=== PATIENT | male | born 1975 | race Caucasian/White ===

== ENCOUNTER 2023-04-08 05:50 | Emergency (ER) | payer BC ==
--- NOTE | 2023-04-08 06:20 | ED GI ---
General Chief Complaint: Rect Problems Stated Complaint: HEMORRHOIDS Source of Information: Patient Exam Limitations: No Limitations History of Present Illness Date Seen by Provider: Apr 08, 2023 Time Seen by Provider: 06:20 Initial Comments Patient is a 48-year-old male who presents to the emergency department today with a chief complaint of concern for hemorrhoids. Patient has been developing rectal pain over the last 2 weeks. He has been using suppositories, topical numbing cream and Preparation H without any relief of symptoms. He states he was up all night with the pain. Last oral intake was around 2 or 3 AM, he had a sip of water. Patient relates that he had a "fistulectomy" at [facility] in January. He has been on stool softener since. He states the pain is unbearable, unable to find a comfortable position. No nausea vomiting. He is not a diabetic. Denies black or bloody stool. Has not been constipated. No problems with urination. Timing/Duration: Other (2 weeks) Severity/Quality: Severe, Sharp Location: Other (rectal) Radiation: No Radiation Associated Symptoms: Denies Symptoms Allergies and Home Medications Allergies Coded Allergies: No Known Drug Allergies (Unverified , 04/08/23) Patient Home Medication List Home Medication List Reviewed: Yes Amoxicillin/Potassium Clav (Amox Tr-K Clv 875-125 mg Tab) 875 Mg-125 Mg Tablet, 1 EACH PO BID Prescribed by: SRIKANTH MCLEAN on 04/08/23 08 Hydrocodone/Acetaminophen (Hydrocodone-Acetamin 7.5-325) 7.5 Mg-325 Mg Tablet, 1 EACH PO Q6H PRN for PAIN-BREAKTHROUGH Prescribed by: SRIKANTH MCLEAN on 04/08/23 0806 Review of Systems Review of Systems Constitutional: see HPI Respiratory: No Symptoms Reported Cardiovascular: No Symptoms Reported Gastrointestinal: Other (rectal pain) Physical Exam Vital Signs Vital Signs - First Documented 04/08/23 06:05 Temp 36.6 Pulse 88 Resp 16 B/P (MAP) 138/96 (110) Pulse Ox 99 O2 Delivery Room Air Capillary Refill : Height/Weight/BMI Height: '" Weight: lbs. oz. kg; BMI Method: General Appearance: WD/WN, mild distress Respiratory: no respiratory distress, no accessory muscle use Rectal: other (noted rectal fullness/fluctuance adjacent to the anus at the 7 o'clock position (about 3-4 cm.) on GAEL - very painful, induration extends to the perineum, fluctuance in the rectal vault to the 6 o'clock position) Genital/Rectal: normal rectal tone Extremities: normal range of motion, normal inspection Back: normal inspection Neurologic/Psychiatric: alert, normal mood/affect, oriented x 3 Skin: normal color, warm/dry Procedures/Interventions I&D : Site: left perianal Blade Size: 11 Progress Area cleansed with chlohexadine. 11blade used to make a radial incision about 1cm to the left of the anus. went a little over 1cm deep with COPIOUS amounts of pus returned. Area was continuously irrigated until fluids ran clear. Patient tolerated procedure well. Culture obtained Progress/Results/Core Measures Results/Orders Lab Results Laboratory Tests Test 04/08/23 06:50 Range/Units White Blood Count 7.3 4.3-11.0 10^3/uL Red Blood Count 4.76 4.30-5.52 10^6/uL Hemoglobin 15.9 13.3-17.7 g/dL Hematocrit 45 40-54 % Mean Corpuscular Volume 94 80-99 fL Mean Corpuscular Hemoglobin 33 25-34 pg Mean Corpuscular Hemoglobin Concent 36 32-36 g/dL Red Cell Distribution Width 12.4 10.0-14.5 % Platelet Count 184 130-400 10^3/uL Mean Platelet Volume 11.4 9.0-12.2 fL Immature Granulocyte % (Auto) 0 % Neutrophils (%) (Auto) 64 42-75 % Lymphocytes (%) (Auto) 25 12-44 % Monocytes (%) (Auto) 9 0-12 % Eosinophils (%) (Auto) 2 0-10 % Basophils (%) (Auto) 0 0-10 % Neutrophils # (Auto) 4.7 1.8-7.8 10^3/uL Lymphocytes # (Auto) 1.8 1.0-4.0 10^3/uL Monocytes # (Auto) 0.6 0.0-1.0 10^3/uL Eosinophils # (Auto) 0.1 0.0-0.3 10^3/uL Basophils # (Auto) 0.0 0.0-0.1 10^3/uL Immature Granulocyte # (Auto) 0.0 0.0-0.1 10^3/uL Sodium Level 144 135-145 MMOL/L Potassium Level 3.8 3.6-5.0 MMOL/L Chloride Level 109 H 98-107 MMOL/L Carbon Dioxide Level 26 21-32 MMOL/L Anion Gap 9 5-14 MMOL/L Blood Urea Nitrogen 13 7-18 MG/DL Creatinine 1.13 0.60-1.30 MG/DL Estimat Glomerular Filtration Rate 81 BUN/Creatinine Ratio 12 Glucose Level 98 70-105 MG/DL Calcium Level 9.0 8.5-10.1 MG/DL My Orders Orders - SRIKANTH MCLEAN MD Ed Iv/Invasive Line Start (04/08/23 06:36) Cbc With Automated Diff (04/08/23 06:36) Basic Metabolic Panel (04/08/23 06:36) Ct Pelvis W (04/08/23 06:36) Ns Iv 1000 Ml (Sodium Chloride 0.9%) (04/08/23 06:36) Fentanyl Inj (Sublimaze Injection) (04/08/23 06:45) Ondansetron Injection (Zofran Injectio (04/08/23 06:45) Iohexol Injection (Omnipaque 350 Mg/Ml 1 (04/08/23 07:30) Received Contrast (Hold Metformin- Contr (04/08/23 07:30) Sodium Chloride Flush (Catheter Flush Sy (04/08/23 07:30) Ns (Ivpb) (Sodium Chloride 0.9% Ivpb Bag (04/08/23 07:30) Fentanyl Inj (Sublimaze Injection) (04/08/23 08:00) Lidocaine/Epi Mpf 2% 1:200,000 (Xylocain (04/08/23 08:00) Lidocaine/Epi 1% 1:100,000 (Xylocaine /E (04/08/23 07:59) Wound Culture (04/08/23 08:37) Medications Given in ED Current Medications Medications Dose Ordered Sig/Torri Route Start Time Stop Time Status Last Admin Dose Admin Fentanyl Citrate 50 mcg ONCE ONCE IVP 04/08/23 06:45 04/08/23 06:46 DC 04/08/23 06:51 50 MCG Fentanyl Citrate 50 mcg ONCE ONCE IVP 04/08/23 08:00 04/08/23 08:01 DC 04/08/23 08:01 50 MCG Iohexol 100 ml ONCE ONCE IV 04/08/23 07:30 04/08/23 07:31 DC 04/08/23 07:30 80 ML Ondansetron HCl 4 mg ONCE ONCE IVP 04/08/23 06:45 04/08/23 06:46 DC 04/08/23 06:51 4 MG Sodium Chloride 10 ml NEEDED PRN IV 04/08/23 07:30 04/08/23 07:30 10 ML Sodium Chloride 100 ml ONCE ONCE IV 04/08/23 07:30 04/08/23 07:31 DC 04/08/23 07:30 80 ML Vital Signs/I&O 04/08/23 06:05 Temp 36.6 Pulse 88 Resp 16 B/P (MAP) 138/96 (110) Pulse Ox 99 O2 Delivery Room Air Progress Progress Note : Time: 08:41 Progress Note Patient seen and examined by me. Evaluation today includes physical exam, CBC, basic metabolic panel, CT scan of the pelvis with IV contrast. Pertinent physical exam findings include abscess palpable to the left of the anus at approximately the 6 to 8 o'clock position. There is fluctuance just past the anal verge. It seems there is a little fluctuance in the rectal vault at this area. No surrounding cellulitis. No active drainage. Very tender to palpation. Differential diagnosis based on history and physical exam, perirectal versus perianal abscess. Labs independently reviewed and interpreted by me. CT scan of the pelvis read by radiologist as perianal abscess to the left approximately 3 x 2 x 2 cm. CBC is normal. Basic metabolic panel is normal. After discussion with the patient we decided to open up the abscess and drain it. Patient had been given IV fentanyl 50 mcg as well as some Zofran and IV fluids. 1% lidocaine with epinephrine was used to anesthetize the area, approximately 3 cc was used. Skin was cleansed with chlorhexidine. 11 blade used to make a small 1 cm incision radially from the anus. I ended up having to go in a little over a centimeter to access the abscess cavity. Significant amounts of purulent material was obtained from the abscess cavity. I had to "milk" the area for quite a while to facilitate drainage. He was irrigated with 500 cc of normal saline until the fluid ran clear. No packing was placed. Discussed cleansing the area thoroughly with the patient and sitting in a warm sitz bath daily. He still has contact with the surgeon who did his fistulotomy in [place] and will be there this week. Advised him to follow-up on Sunday or Sunday. He will be placed on Augmentin. He is given hydrocodone for pain. Counseled on stool softeners. He is comfortable with plan of care. Verbalized understanding ; discharge instructions provided in both verbal and written format. All questions are sought and answered. Patient is improved at discharge. Diagnostic Imaging Diagonstic Imaging: CT Comments [facility], [place] NAME: PETER HERNANDEZ [facility] REC#: [id number] PT STATUS: REG ER : 1975 PHYSICIAN: SRIKANTH MCLEAN MD ADMIT DATE: 04/08/23/ER Draft Date of Exam:04/08/23 CT PELVIS W EXAMINATION: CT pelvis with intravenous contrast. TECHNIQUE: Multiple contiguous axial images were obtained through the pelvis after the uneventful administration of intravenous contrast. All CT scans use one or more of the following dose optimizing techniques: automated exposure control, MA and/or KvP adjustment based on patient size and exam type or iterative reconstruction. HISTORY: perirectal abscess COMPARISON: None available. FINDINGS: There is no bowel obstruction. The visualized appendix is normal. No free air or free fluid or suspicious lymphadenopathy. The urinary bladder and prostate gland are unremarkable. Vascular calcifications without aneurysm. The osseous structures are intact. Along the left perianal soft tissues, there is inflammatory stranding as well as what appears to be loculated fluid collection measuring 3.6 x 1.8 cm. IMPRESSION: 1. Findings concerning for left perianal abscess measuring up to 3.6 x 1.8 cm. Dictated on workstation # [id number] Dict: 04/08/23 0730 Trans: 04/08/23 0734 [facility] [id number] Interpreted by: JOCELIN NORTON DO Electronically signed by: Departure Impression Primary Impression: Perianal abscess Disposition: 01 HOME, SELF-CARE Condition: Improved Departure-Patient Inst. Decision time for Depature: 08:44 Referrals: CRISTIAN STARKS DO NO,LOCAL PHYSICIAN (PCP) Primary Care Physician Patient Instructions: Anal Abscess and Fistula, Adult (DC) Add. Discharge Instructions: You need to try and sit in a warm "sitz bath" at least daily for the next 3 to 4 days. Wash the area gently with a mild soap and water. Keep the area clean dry and covered as I would expect it to drain continuously over the next several days. Use moist wipes to clean yourself thoroughly after bowel movements. Monitor the area for increased pain or redness. If you develop a fever you need to come back to the emergency department. I have sent a prescription for Augmentin (amoxicillin/clavulanic acid) which is an antibiotic to your pharmacy. Please take 1 pill twice a day for 5 days. I have also prescribed hydrocodone. 1 pill every 6 hours with 1 additional extra strength Tylenol. Take this as needed for pain. Do not drive and take hydrocodone. Continue your stool softeners. You do not want to strain for bowel movements. Return to the emergency department for any new, concerning or emergent complaints. Scripts Hydrocodone/Acetaminophen (Hydrocodone-Acetamin 7.5-325) 7.5 Mg-325 Mg Tablet 1 EACH PO Q6H PRN for PAIN-BREAKTHROUGH, #12 TAB Prov: SRIKANTH MCLEAN MD 04/08/23 Amoxicillin/Potassium Clav (Amox Tr-K Clv 875-125 mg Tab) 875 Mg-125 Mg Tablet 1 EACH PO BID for 5 Days, #10 TAB Prov: SRIKANTH MCLEAN MD 04/08/23 Work/School Note: Work Release Form Date Seen in the Emergency Department: Apr 08, 2023 Return to Work: Apr 10, 2023 Copy Copies To 1: CRISTIAN STARKS KATHRYN M MD Apr 08, 2023 06:20
[2023-04-08] MEDS ORDERED: NS IV 1000 ML 1,000 ML IV STA (06:36)
[2023-04-08] MEDS ORDERED: ONDANSETRON 4 MG/2 ML (SDV) Z0FRAN IVP ONE (06:45)
[2023-04-08] MEDS ORDERED: fentaNYL INJ 100 MCG/2 ML AMP IVP ONE ×2 (06:45→08:00)
[2023-04-08 06:58] LABS: BASOPHILS % (AUTO) 0 % (0-10); EOSINOPHILS # (AUTO) 0.1 10^3/uL (0.0-0.3); EOSINOPHILS % (AUTO) 2 % (0-10); HEMATOCRIT 45 % (40-54); HEMOGLOBIN 15.9 g/dL (13.3-17.7); LYMPHOCYTES # (AUTO) 1.8 10^3/uL (1.0-4.0); LYMPHOCYTES % (AUTO) 25 % (12-44); MEAN CORPUSCULAR HEMOGLOBIN 33 pg (25-34); MEAN CORPUSCULAR HGB CONC 36 g/dL (32-36); MEAN CORPUSCULAR VOLUME 94 fL (80-99); MEAN PLATELET VOLUME 11.4 fL (9.0-12.2); MONOCYTES # (AUTO) 0.6 10^3/uL (0.0-1.0); MONOCYTES % (AUTO) 9 % (0-12); NEUTROPHILS # (AUTO) 4.7 10^3/uL (1.8-7.8); NEUTROPHILS % (AUTO) 64 % (42-75); PLATELET COUNT 184 10^3/uL (130-400); WHITE BLOOD COUNT 7.3 10^3/uL (4.3-11.0)
[2023-04-08 07:07] LABS: POTASSIUM 3.8 MMOL/L (3.6-5.0)
[2023-04-08 07:12] LABS: CREATININE SERUM 1.13 MG/DL (0.60-1.30)
[2023-04-08] MEDS ORDERED: HOLD METFORMIN - RECEIVED CONTRAST 20 ML VIAL IV SCH (07:30)
[2023-04-08] MEDS ORDERED: NS 100 ML (IVPB) BAG IV ONE (07:30)
[2023-04-08] MEDS ORDERED: IOHEXOL 350 MG/ML 100 ML (OMNIPAQUE 350) VIAL IV ONE (07:30)
[2023-04-08] MEDS ORDERED: CATHETER FLUSH 10 ML SYR IV PRN (07:30)
--- NOTE | 2023-04-08 07:35 | Diagnostic Imaging Report ---
EXAMINATION: CT pelvis with intravenous contrast. TECHNIQUE: Multiple contiguous axial images were obtained through the pelvis after the uneventful administration of intravenous contrast. All CT scans use one or more of the following dose optimizing techniques: automated exposure control, MA and/or KvP adjustment based on patient size and exam type or iterative reconstruction. HISTORY: perirectal abscess COMPARISON: None available. FINDINGS: There is no bowel obstruction. The visualized appendix is normal. No free air or free fluid or suspicious lymphadenopathy. The urinary bladder and prostate gland are unremarkable. Vascular calcifications without aneurysm. The osseous structures are intact. Along the left perianal soft tissues, there is inflammatory stranding as well as what appears to be loculated fluid collection measuring 3.6 x 1.8 cm. IMPRESSION: 1. Findings concerning for left perianal abscess measuring up to 3.6 x 1.8 cm. Dictated by: Dictated on workstation # [id number]
[2023-04-08] MEDS ORDERED: LIDOCAINE/EPI 1%-1:100,000 (XYLOCAINE) 20ML ONE (07:59)
[2023-04-08] MEDS ORDERED: LIDOCAINE/EPI 2% 1:200,00 (XYLOCAINE) 10 ML VIAL INJ ONE (08:00)
[2023-04-08] MEDS ORDERED: AMOX1TAB12 PO (08:06)
[2023-04-08] MEDS ORDERED: HYDR-3817 PO (08:06)
[2023-04-08 09:00] VITALS: BP 132/84
== END 2023-04-08 09:00 | disposition home or self-care (01) ==
LOC: ER 05:57
DX: K61.0 Anal abscess (principal); Z28.310 Unvaccinated for COVID-19
CPT/HCPCS: 36415; 46050; 72193; 80048; 85025; 87070; 87077; 87205